=== PATIENT | female | born 1975 | race Caucasian/White ===

== ENCOUNTER 2018-03-08 06:35 | Inpatient (IN) ==
--- NOTE | 2018-03-08 06:50 | Emergency Department Note ---
Disposition Clinical Impression: Suicidal ideation Chest pain Qualifiers: Chest pain type: unspecified Qualified Code(s): R07.9 - Chest pain, unspecified Disposition: Still a Patient Condition: Fair Forms: ED Satisfaction Letter General Adult HPI - General Chief complaint: ED Chest Pain Stated complaint: chest pain Time Seen by Provider: 03/08/18 06:40 Source: patient, EMS Nursing Notes Reviewed: Yes Vital Signs Reviewed: Yes - History of Present Illness HPI Narrative: 42-year-old female has emergency department with chest pain and palpitations. Patient stated that it started an hour ago. Patient also states that she wants to kill herself. She reports wanting to take a knife and slashing her throat. Patient states that she feels that she is just anxious. Patient also states that she thought about taking all of the pills that she owns and kill herself with them. Pain Scale: 7 - Related Data Home Medications Medication Instructions Recorded Confirmed [place] Carbonate 300 mg PO BID 08/29/16 10/24/17 OLANZapine [Zyprexa] 20 mg PO HS 09/11/16 10/24/17 Quetiapine Fumarate [Seroquel] 400 mg PO HS 06/06/17 10/24/17 Buprenorphine HCl [Subutex] 16 mg SL DAILY 10/24/17 10/24/17 Lurasidone HCl [Latuda] 60 mg PO DAILY 10/24/17 10/24/17 Ropinirole HCl [Requip] 0.25 mg PO HS 10/24/17 10/24/17 Previous Rx's Medication Instructions Recorded Albuterol Sulfate [Ventolin Hfa] 2 puff IH Q4-6H PRN #1 hfa.aer.ad 12/05/17 Amoxicillin/Clavulanate [Augmentin] 875 mg PO BIDWM #20 tablet 12/20/17 Benzonatate [Tessalon] 100 mg PO TID #30 capsule 12/20/17 Guaifenesin [Guaifenesin ER] 600 mg PO BID PRN #20 tab 12/20/17 predniSONE [PredniSONE] 20 mg PO DAILY 5 Days #7 tablet 12/20/17 Allergies Allergy/AdvReac Type Severity Reaction Status Date / Time No Known Allergies Allergy Verified 12/20/17 09:34 All systems ED: reviewed and negative except as stated. Review of Systems: As Per HPI Constitutional: Denies: fever Cardiovascular: Reports: chest pain Respiratory: Denies: cough, dyspnea Gastrointestinal: Denies: abdominal pain, nausea, vomiting Genitourinary: Denies: urgency Musculoskeletal: Denies: back pain Neurological: Denies: headache, weakness, numbness, paresthesias Psychiatric: Denies: anxiety Endocrine: Denies: fatigue Past Medical History - Past Medical History Medical history: Reports: hepatitis, hypertension, other Surgical history: Reports: , other (Left eye surgery) Psychiatric history: Reports: anxiety, bipolar, depression, PTSD, prior suicide attempt, previous psychiatric hospitalization STUDIO MANAGER history: Reports: no STUDIO MANAGER history - Social History Smoking Status: Current every day smoker Smokeless Tobacco Status: No Alcohol use: Reports: none Drug use: Reports: cocaine, opiates, IV Drug Use, prescription drug abuse Physical Exam - General General appearance: alert - Head Head exam: atraumatic, normocephalic - Eye Eye exam: Present: EOMI - ENT ENT exam: normal exam, normal oropharynx - Neck Neck exam: Present: full ROM, trachea midline. Absent: tenderness, meningismus - Chest Chest inspection: Present: normal inspection, symmetric chest wall rise - Respiratory Respiratory exam: Present: normal lung sounds bilaterally. Absent: respiratory distress - Cardiovascular Cardiovascular exam: Present: regular rate, normal rhythm, normal heart sounds - Abdominal Exam Abdominal exam: Present: soft, Non-Tender. Absent: distention, guarding, rebound - Back Exam Back exam: Present: normal inspection - Neurological Exam Neurological exam: Present: alert, oriented X3 - Psychiatric Psychiatric exam: Present: anxious Course Vital Signs Temperature 97.6 F 03/08/18 06:38 Pulse Rate 64 03/08/18 06:38 Respiratory Rate 18 03/08/18 06:38 Blood Pressure 122/81 03/08/18 06:38 O2 Sat by Pulse Oximetry 95 03/08/18 06:38 Temperature 97.6 F 03/08/18 06:38 Pulse Rate 64 03/08/18 06:38 Respiratory Rate 18 03/08/18 06:38 Blood Pressure 122/81 03/08/18 06:38 O2 Sat by Pulse Oximetry 95 03/08/18 06:38 Oxygen Delivery Oxygen Delivery Room Air Medical Decision Making - MDM Narrative Medical decision making narrative: 42-year-old female presents to the emergency department with concern for having chest pain and suicidal ideations. At this time, we obtain an electrocardiogram that did not reveal any ischemic changes. However, it did reveal a PVC. This could certainly be the cause of her palpitations that she reports. We will obtain chest x-ray and troponin. We have filled out a pink slip and have gotten this patient a sitter. We are obtaining a urinalysis, urine drug screen, salicylate, Tylenol, CBC, BMP, hepatic panel. Patient hemodynamically stable and not in any acute distress at this time. Transfer of care has been given over to the day team.
[2018-03-08] MEDS ORDERED: *HR* LORazepam 1 MG TABLET PO ONE ×2 (07:03→19:35)
--- NOTE | 2018-03-08 07:13 | Emergency Department Note ---
Disposition Clinical Impression: Suicidal ideation Chest pain Qualifiers: Chest pain type: unspecified Qualified Code(s): R07.9 - Chest pain, unspecified Disposition: Admitted As Inpatient Condition: Fair Referrals: Art Tao MD [Primary Care Provider] - Forms: ED Satisfaction Letter Time of Disposition: 11:22 General Adult HPI - General Chief complaint: ED Psychiatric Symptoms Stated complaint: chest pain;/SI Time Seen by Provider: 03/08/18 06:40 Source: patient, EMS - History of Present Illness Pain Scale: 7 - Related Data Home Medications Medication Instructions Recorded Confirmed [place] Carbonate 300 mg PO BID 08/29/16 10/24/17 OLANZapine [Zyprexa] 20 mg PO HS 09/11/16 10/24/17 Quetiapine Fumarate [Seroquel] 400 mg PO HS 06/06/17 10/24/17 Buprenorphine HCl [Subutex] 16 mg SL DAILY 10/24/17 10/24/17 Lurasidone HCl [Latuda] 60 mg PO DAILY 10/24/17 10/24/17 Ropinirole HCl [Requip] 0.25 mg PO HS 10/24/17 10/24/17 Previous Rx's Medication Instructions Recorded Albuterol Sulfate [Ventolin Hfa] 2 puff IH Q4-6H PRN #1 hfa.aer.ad 12/05/17 Amoxicillin/Clavulanate [Augmentin] 875 mg PO BIDWM #20 tablet 12/20/17 Benzonatate [Tessalon] 100 mg PO TID #30 capsule 12/20/17 Guaifenesin [Guaifenesin ER] 600 mg PO BID PRN #20 tab 12/20/17 predniSONE [PredniSONE] 20 mg PO DAILY 5 Days #7 tablet 12/20/17 Allergies Allergy/AdvReac Type Severity Reaction Status Date / Time No Known Allergies Allergy Verified 12/20/17 09:34 Constitutional: Denies: fever Cardiovascular: Reports: chest pain Respiratory: Denies: cough, dyspnea Gastrointestinal: Denies: abdominal pain, nausea, vomiting Genitourinary: Denies: urgency Musculoskeletal: Denies: back pain Neurological: Denies: headache, weakness, numbness, paresthesias Psychiatric: Denies: anxiety Endocrine: Denies: fatigue Past Medical History - Past Medical History Medical history: Reports: hepatitis, hypertension, other Surgical history: Reports: , other (Left eye surgery) Psychiatric history: Reports: anxiety, bipolar, depression, PTSD, prior suicide attempt, previous psychiatric hospitalization PLAN EXAMINER history: Reports: no PLAN EXAMINER history - Social History Smoking Status: Current every day smoker Smokeless Tobacco Status: No Alcohol use: Reports: none Drug use: Reports: cocaine, opiates, IV Drug Use, prescription drug abuse Physical Exam - General General appearance: alert Course Vital Signs Temperature 97.6 F 03/08/18 06:38 Pulse Rate 64 03/08/18 06:38 Respiratory Rate 18 03/08/18 06:38 Blood Pressure 122/81 03/08/18 06:38 O2 Sat by Pulse Oximetry 95 03/08/18 06:38 Temperature 97.6 F 03/08/18 06:38 Pulse Rate 81 03/08/18 08:30 Respiratory Rate 16 03/08/18 08:30 Blood Pressure 108/80 03/08/18 08:30 O2 Sat by Pulse Oximetry 97 03/08/18 08:30 Oxygen Delivery Oxygen Delivery Room Air Medical Decision Making - Medical Records Medical records reviewed: Yes I reviewed the patient's medical records. - Lab Data Lab results reviewed: Yes I reviewed the patient's lab results. Result diagrams: 03/08/18 07:36 03/08/18 07:36 Lab Results 03/08/18 03/08/18 03/08/18 Range/Units 07:00 07:36 07:36 WBC 2.9 L (4.3-11.1) K/mcL RBC 4.28 (3.82-4.97) M/mcL Hgb 13.8 (11.5-15.4) g/dL Hct 39.7 (35.3-44.9) % MCV 92.8 (83.0-100.0) fL MCH 32.2 (28.0-33.3) pg MCHC 34.8 (31.6-35.5) g/dL RDW 11.8 (11.5-14.5) % Plt Count 146 (140-400) K/mcL MPV 9.3 L (9.4-12.4) fL Immature Gran % 0.0 (0-4) % Seg Neutrophils % 45.2 % Lymphocytes % 36.9 % Monocytes % 12.4 % Eosinophils % 5.2 % Basophils % 0.3 % Neutrophils # 1.3 L (1.6-8.9) K/mcL Lymphocytes # 1.1 (0.6-4.6) K/mcL Monocytes # 0.4 (0.0-1.3) K/mcL Eosinophils # 0.2 (0.0-0.6) K/mcL Basophils # 0.0 (0.0-0.2) K/mcL Sodium 141 (136-145) mEq/L Potassium 4.1 (3.5-5.1) mEq/L Chloride 112 H (98-107) mEq/L Carbon Dioxide 24 (23-29) mEq/L BUN 11 (6-20) mg/dL Creatinine 0.65 (0.60-1.20) mg/dL Est GFR ( Amer) > 60 (> 60) Est GFR (Non-Af Amer) > 60 (> 60) BUN/Creatinine Ratio 17 (6-26) Glucose 102 (70-105) mg/dL Calculated Osmolality 292 (280-300) Calcium 8.9 (8.6-10.3) mg/dL Total Bilirubin 0.3 (0.3-1.0) mg/dL Direct Bilirubin 0.1 (0.0-0.2) mg/dL Indirect Bilirubin 0.2 (0.0-1.2) mg/dL AST 24 (13-39) Units/L ALT 10 (7-52) Units/L Alkaline Phosphatase 78 (34-104) Units/L Troponin I < 0.03 (< 0.04) ng/mL B-Natriuretic Peptide (Less than 100) pg/mL Serum Total Protein 6.1 L (6.4-8.9) g/dL Albumin 3.8 (3.5-5.7) g/dL Globulin 2.3 L (2.4-3.5) g/dL Albumin/Globulin Ratio 1.7 (1.1-2.2) Salicylates 2.5 L (15.0-30.0) mg/dL Urine Opiates Screen Negative (Fpvghc=772) ng/mL Acetaminophen < 10 L (10-20) mcg/mL Ur Barbiturates Screen Negative (Quhafy=314) ng/mL Ur Phencyclidine Scrn Negative (Cutoff=25) ng/mL Ur Amphetamines Screen Negative (Csimlk=6960) ng/mL U Benzodiazepines Scrn Negative (Xdyfoo=413) ng/mL [place] (0.6-1.2) mEq/L Urine Cocaine Screen Positive H (Cutoff= 300) ng/mL U Marijuana (THC) Screen Negative (Cutoff = 50) ng/mL Ethyl Alcohol < 10 (Less than 10) mg/dL 03/08/18 03/08/18 Range/Units 07:36 07:52 WBC (4.3-11.1) K/mcL RBC (3.82-4.97) M/mcL Hgb (11.5-15.4) g/dL Hct (35.3-44.9) % MCV (83.0-100.0) fL MCH (28.0-33.3) pg MCHC (31.6-35.5) g/dL RDW (11.5-14.5) % Plt Count (140-400) K/mcL MPV (9.4-12.4) fL Immature Gran % (0-4) % Seg Neutrophils % % Lymphocytes % % Monocytes % % Eosinophils % % Basophils % % Neutrophils # (1.6-8.9) K/mcL Lymphocytes # (0.6-4.6) K/mcL Monocytes # (0.0-1.3) K/mcL Eosinophils # (0.0-0.6) K/mcL Basophils # (0.0-0.2) K/mcL Sodium (136-145) mEq/L Potassium (3.5-5.1) mEq/L Chloride (98-107) mEq/L Carbon Dioxide (23-29) mEq/L BUN (6-20) mg/dL Creatinine (0.60-1.20) mg/dL Est GFR ( Amer) (> 60) Est GFR (Non-Af Amer) (> 60) BUN/Creatinine Ratio (6-26) Glucose (70-105) mg/dL Calculated Osmolality (280-300) Calcium (8.6-10.3) mg/dL Total Bilirubin (0.3-1.0) mg/dL Direct Bilirubin (0.0-0.2) mg/dL Indirect Bilirubin (0.0-1.2) mg/dL AST (13-39) Units/L ALT (7-52) Units/L Alkaline Phosphatase (34-104) Units/L Troponin I (< 0.04) ng/mL B-Natriuretic Peptide 12 (Less than 100) pg/mL Serum Total Protein (6.4-8.9) g/dL Albumin (3.5-5.7) g/dL Globulin (2.4-3.5) g/dL Albumin/Globulin Ratio (1.1-2.2) Salicylates (15.0-30.0) mg/dL Urine Opiates Screen (Azgmzh=282) ng/mL Acetaminophen (10-20) mcg/mL Ur Barbiturates Screen (Ocuszp=800) ng/mL Ur Phencyclidine Scrn (Cutoff=25) ng/mL Ur Amphetamines Screen (Vopbzy=1254) ng/mL U Benzodiazepines Scrn (Okbaru=893) ng/mL [place] 0.3 L (0.6-1.2) mEq/L Urine Cocaine Screen (Cutoff= 300) ng/mL U Marijuana (THC) Screen (Cutoff = 50) ng/mL Ethyl Alcohol (Less than 10) mg/dL - Radiology Data Radiology results reviewed: Yes I reviewed the patient's radiology results. - EKG Data EKG #1 EKG attestation: Yes I reviewed and interpreted this EKG. EKG results narrative: Normal sinus rhythm with PVCs rate 74 PA are 199 QRS 112 QT/QTC 385/412. No acute ST segment elevation Attestation Statement - Attestation Attestation: I examined this patient and my medical decision-making was reviewed with the Resident Physician. I agree with the documented findings, disposition and treatment plan as described except to the extent set forth below. [id number] time provided Patient arrives by EMS complaining of chest discomfort which she attributes to her anxiety. She denies dyspnea. She is not conversationally dyspneic. ECG reviewed by me. She states she is severely depressed, her medications are not working, and she wants to speak with somebody from the behavioral service for suicidal thoughts. I will attempt to clear her medically for behavioral evaluation if her cardiac evaluation is negative 10:20: cleared medically at 10:20
[2018-03-08 07:24] LABS: Amphetamine Screen,Urine Negative ng/mL (Cutoff=1000); Barbiturate Screen,Urine Negative ng/mL (Cutoff=200); Benzodiazepines Screen,Urine Negative ng/mL (Cutoff=200); Cannabinoid Screen,Urine Negative ng/mL (Cutoff = 50); Cocaine Screen,Urine Positive ng/mL (Cutoff= 300); Opiate Screen,Urine Negative ng/mL (Cutoff=300); Phencyclidine Screen,Urine Negative ng/mL (Cutoff=25)
[2018-03-08 08:11] LABS: Basophils % 0.3 %; Eosinophils # 0.2 K/mcL (0.0-0.6); Eosinophils % 5.2 %; Hematocrit 39.7 % (35.3-44.9); Hemoglobin 13.8 g/dL (11.5-15.4); Lymphocytes # 1.1 K/mcL (0.6-4.6); Lymphocytes % 36.9 %; Mean Corpuscular HGB Conc 34.8 g/dL (31.6-35.5); Mean Corpuscular Hemoglobin 32.2 pg (28.0-33.3); Mean Corpuscular Volume 92.8 fL (83.0-100.0); Mean Platelet Volume 9.3 fL (9.4-12.4); Monocytes # 0.4 K/mcL (0.0-1.3); Monocytes % 12.4 %; Neutrophils # 1.3 K/mcL (1.6-8.9); Platelet Count 146 K/mcL (140-400); Red Blood Count 4.28 M/mcL (3.82-4.97); Red Cell Distribution Width 11.8 % (11.5-14.5); Segmented Neutrophils % 45.2 %
[2018-03-08 08:30] LABS: Troponin I < 0.03 ng/mL (< 0.04)
[2018-03-08] MEDS ORDERED: diazePAM 2 MG TABLET PO ONE (08:41)
[2018-03-08] MEDS ORDERED: Nicotine 21 MG PATCH.TD24 TD ONE (09:40)
[2018-03-08 10:17] LABS: Acetaminophen < 10 mcg/mL (10-20); Alanine Aminotransferase 10 Units/L (7-52); Albumin 3.8 g/dL (3.5-5.7); Albumin/Globulin Ratio 1.7 (1.1-2.2); Alkaline Phosphatase 78 Units/L (34-104); Aspartate Amino Transferase 24 Units/L (13-39); BUN/Creatinine Ratio 17 (6-26); Bilirubin,Direct 0.1 mg/dL (0.0-0.2); Bilirubin,Indirect 0.2 mg/dL (0.0-1.2); Bilirubin,Total 0.3 mg/dL (0.3-1.0); Blood Urea Nitrogen 11 mg/dL (6-20); Calcium 8.9 mg/dL (8.6-10.3); Carbon Dioxide 24 mEq/L (23-29); Chloride 112 mEq/L (98-107); Ethanol < 10 mg/dL (Less than 10); Globulin 2.3 g/dL (2.4-3.5); Glucose 102 mg/dL (70-105); Osmolality,Calculated 292 (280-300); Potassium 4.1 mEq/L (3.5-5.1); Salicylate 2.5 mg/dL (15.0-30.0); Sodium 141 mEq/L (136-145); Total Protein 6.1 g/dL (6.4-8.9); eGFR For African Americans > 60 (> 60); eGFR For Non-African Americans > 60 (> 60)
[2018-03-08] MEDS ORDERED: HydrOXYzine 100 MG/2 ML VIAL IM ONE (11:03)
[2018-03-08] MEDS ORDERED: MOM Conc 10 ML UD.LIQ PO PRN (11:55)
[2018-03-08] MEDS ORDERED: Ibuprofen 400 MG TABLET PO PRN (11:55)
[2018-03-08] MEDS ORDERED: *HR* LORazepam 1 MG TABLET PO PRN (11:55)
[2018-03-08] MEDS ORDERED: hydrOXYzine pamoate 25 MG CAPSULE PO PRN (11:55)
[2018-03-08] MEDS ORDERED: Haloperidol Lactate 5 MG/ML VIAL IM PRN (11:55)
[2018-03-08] MEDS ORDERED: *HR* LORazepam 2 MG/ML VIAL IM PRN (11:55)
[2018-03-08] MEDS ORDERED: Ondansetron ODT 4 MG TAB.RAPDIS SL PRN (11:58)
[2018-03-08] MEDS ORDERED: Baclofen 10 MG TABLET PO SCH (15:00)
[2018-03-08] MEDS ORDERED: Baclofen 10 MG TABLET PO PRN (16:14)
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
[2018-03-08] MEDS: Lithium Carbonate 300 MG CAPSULE PO SCH (21:37)
[2018-03-08] MEDS: rOPINIRole 0.25 MG TABLET PO SCH (21:37)
[2018-03-08] MEDS: Gabapentin 300 MG CAPSULE PO SCH (21:38)
--- NOTE | 2018-03-08 23:30 | Electrocardiograph Report ---
[address] [address] Test Date: 2018-03-08 Pat Name: Sara Knapp Department: 103 Room: 1A41 Gender: F Neurobiologist: CT : 1975 Requested By: Osmin Mendez Order Number: [id number] Reading MD: Rosalina Starks Measurements Intervals [place] Rate: 74 P: 73 NV: 199 QRS: 42 QRSD: 112 T: 42 QT: 385 QTc: 412 Interpretive Statements SINUS RHYTHM WITH OCCASIONAL VENTRICULAR PREMATURE COMPLEXES MODERATE INTRAVENTRICULAR CONDUCTION DELAY [110+ ms QRS DURATION] Electronically Signed On 03-08-2018 23:28:14 EDT by Rosalina Starks
[2018-03-09] MEDS: Lithium Carbonate 300 MG CAPSULE PO SCH ×2 (08:46→20:43)
[2018-03-09] MEDS: Gabapentin 300 MG CAPSULE PO SCH ×3 (08:46→20:43)
[2018-03-09] MEDS ORDERED: Nicotine 21 MG PATCH.TD24 TD SCH (09:00)
[2018-03-09] MEDS ORDERED: *HR* LORazepam 0.5 MG TABLET PO ONE (13:47)
--- NOTE | 2018-03-09 13:50 | Psychiatry Progress Note ---
Date of Encounter: 03/09/18 Time of Encounter: 13:30 Subjective Interval history: Patient is a 42t/o female, single with a h/o Bipolar disorder, anxiety disorder, subspace use disorder, h/o multiple inpatient hospitalization admitted to the floor on account of worsening depression with suicidal thoughts. She was discussed on rounds by multidisciplinary treatment team. There were no reported behavioral issues or incident overnight. Patient was seen this morning in the office. She was calm, cooperative and well related. She reported worsening depressive symptoms with suicidal thoughts in the setting of medication noncompliance and cocain use. Patient denied ongoing stressors. She reported being sober for over 2yrs but relapsed a month ago. She is compliant with her medications and denied any side effects. She denied problelms with her sleep or appatite. She continues to endorse depressive symptoms with intermittent SI. She denied any plan or intent. On review of symptoms, she denied any mood or psychotic symptoms including AH/VH/HI. 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 She is on suboxone maintenance treatment for opiate dependence. She last took her suboxone the day she presented to the hospital. She denies any signs and symptoms of opiate withdrawal. Review of Systems Constitutional: Denies: fever, chills, weakness, weight change Eyes: Denies: eye pain, vision change Ears, Nose, Throat: Denies: ear pain, throat pain, dental pain, hearing loss, congestion Cardiovascular: Denies: chest pain, palpitations, dyspnea on exertion Respiratory: Denies: cough, dyspnea, wheezes Gastrointestinal: Denies: abdominal pain, nausea, vomiting, diarrhea, constipation Musculoskeletal: Denies: joint swelling, joint pain Neurological: Denies: headache, weakness, numbness, memory loss Psychiatric: Reports: depression, anxiety, suicidal ideation Results - Vital Signs Vital Signs: Temp Pulse Resp BP Pulse Ox 98.4 F 73 18 116/78 97 03/09/18 09:00 03/09/18 09:00 03/09/18 09:00 03/09/18 09:00 03/08/18 08:30 Assessment and Plan (1) Anxiety Current visit: No Status: Acute Risks, benefits, side effects, alternatives discussed w/pt: Yes Patient agreeable to treatment: Yes (2) Drug abuse and dependence Current visit: Yes Status: Chronic Plan: Continue hospitalization Risks, benefits, side effects, alternatives discussed w/pt: Yes Patient agreeable to treatment: Yes (3) Suicidal ideation Current visit: Yes Status: Acute Plan: Continue hospitalization, Close observation, Suicide Precautions per unit protocol, Encourage participation in unit milieu, Group Therapy, Monitor sleep, Monitor appetite Risks, benefits, side effects, alternatives discussed w/pt: Yes Patient agreeable to treatment: Yes (4) Depression Current visit: Yes Status: Chronic Risks, benefits, side effects, alternatives discussed w/pt: Yes Patient agreeable to treatment: Yes Qualifiers: Depression Type: major depressive disorder Major depression recurrence: unspecified whether recurrent Active/Remission status: currently active Major depression episode severity: moderate Qualified Code(s): F32.1 - Major depressive disorder, single episode, moderate (5) Cocaine abuse Current visit: Yes Status: Acute Plan: Continue hospitalization, Close observation, Suicide Precautions per unit protocol, Encourage participation in unit milieu, Group Therapy, Monitor sleep, Monitor appetite (6) Heroin abuse Current visit: No Status: Chronic Plan: Continue hospitalization, Close observation, Suicide Precautions per unit protocol, Encourage participation in unit milieu, Group Therapy, Monitor sleep, Monitor appetite (7) Drug-induced mood disorder Current visit: Yes Status: Acute Plan: Continue hospitalization, Close observation, Suicide Precautions per unit protocol, Encourage participation in unit milieu, Group Therapy, Monitor sleep, Monitor appetite Consult Discharge Plan - Plan Referrals: Art Tao MD [Primary Care Provider] - Psychiatry Exam - Constitutional Vitals: Temp Pulse Resp BP Pulse Ox 98.4 F 73 18 116/78 97 03/09/18 09:00 03/09/18 09:00 03/09/18 09:00 03/09/18 09:00 03/08/18 08:30 General appearance: age & developmentally appropriate - Musculoskeletal Gait: normal Station: relaxed Strength & Tone: normal for patient - Psychiatric Patient Orientation: Yes Person, Yes Place, Yes Circumstance Level of alertness: Alert, Follows commands Behavior: calm, cooperative Psychomotor activity: Normal Eye Contact: Maintains Eye Contact Mood Description: Depressed Affect description: full range Speech Volume: Normal, Loud Speech pattern: normal rate, normal rhythm, normal tone, fluent, spontaneous Language & Vocabulary: consistent with education Thought Process: Logical, Goal Oriented Thought Content: Yes Suicidal ideation Perceptual Disturbances: No Auditory hallucinations, No Visual hallucinations Attention Span Ability: Capable of Focused Attention Memory Description: Grossly Intact Patient Reliability: Reliable Historian Fund of knowledge: Yes average Intelligence Estimate: Average Judgment: Poor Insight: Minimal
[2018-03-09] MEDS ORDERED: Nicotine 2 MG GUM BC PRN (14:11)
[2018-03-09] MEDS: rOPINIRole 0.25 MG TABLET PO SCH (20:43)
[2018-03-09] MEDS: hydrOXYzine pamoate 25 MG CAPSULE PO PRN (20:44)
[2018-03-10] MEDS: Gabapentin 300 MG CAPSULE PO SCH ×3 (10:11→20:34)
[2018-03-10] MEDS: Lithium Carbonate 300 MG CAPSULE PO SCH ×3 (10:11→20:34)
--- NOTE | 2018-03-10 14:07 | Psychiatry Progress Note ---
Date of Encounter: 03/10/18 Time of Encounter: 13:50 Subjective Interval history: Identifying Data: Patient is a 42t/o female, single with a h/o Bipolar disorder, anxiety disorder, subspace use disorder, h/o multiple inpatient hospitalization admitted to the floor on account of worsening depression with suicidal thoughts. Interval Hx: She seen and discussed on rounds by multidisciplinary treatment team. There were no reported behavioral issues or incident overnight. She was seen this morning in the day room. She was calm, cooperative and well related. She reported feeling a little today. She is comoliant with her medications and denied any side effects. She denied problelms with her sleep or apatite. She rated her depression and anxiety both 5/10 and denied any suicidal thoughts.[place] Level done this morning reviewed and is 0.5. Review of O[facility] showed patient has been on Subutex 8mg BID since 2015 with her last prescription picked up 03/05 for 7 days. She denied any signs and symptoms of opiates withdrawal. On review of symptoms, she denied any mood or psychotic symptoms including AH/VH/HI. Current [place] level is subtherapeutic and I plan to increase the dose to Review of Systems Constitutional: Denies: fever, chills, weakness, weight change Eyes: Denies: eye pain, vision change Ears, Nose, Throat: Denies: ear pain, throat pain, dental pain, hearing loss, congestion Cardiovascular: Denies: chest pain, palpitations, dyspnea on exertion Respiratory: Denies: cough, dyspnea, wheezes Gastrointestinal: Denies: abdominal pain, nausea, vomiting, diarrhea, constipation Musculoskeletal: Denies: joint swelling, joint pain Neurological: Denies: headache, weakness, numbness, memory loss Psychiatric: Reports: depression, anxiety Results - Vital Signs Vital Signs: Temp Pulse Resp BP Pulse Ox 98.5 F 80 16 119/92 18 03/09/18 20:17 03/10/18 08:25 03/10/18 08:25 03/10/18 08:25 03/09/18 20:17 - Drug Levels and Toxicology Drug Levels and Toxicology: Drug Levels and Toxicity 03/10/18 02:06 [place] 0.5 L - Labs Labs: Laboratory Results - last 24 hr 03/10/18 02:06 [place] 0.5 L Assessment and Plan (1) Anxiety Current visit: No Status: Acute Risks, benefits, side effects, alternatives discussed w/pt: Yes Patient agreeable to treatment: Yes (2) Drug abuse and dependence Current visit: Yes Status: Chronic Risks, benefits, side effects, alternatives discussed w/pt: Yes Patient agreeable to treatment: Yes (3) Suicidal ideation Current visit: Yes Status: Acute Risks, benefits, side effects, alternatives discussed w/pt: Yes Patient agreeable to treatment: Yes (4) Depression Current visit: Yes Status: Chronic Risks, benefits, side effects, alternatives discussed w/pt: Yes Patient agreeable to treatment: Yes Qualifiers: Depression Type: major depressive disorder Major depression recurrence: unspecified whether recurrent Active/Remission status: currently active Major depression episode severity: moderate Qualified Code(s): F32.1 - Major depressive disorder, single episode, moderate (5) Cocaine abuse Current visit: Yes Status: Acute (6) Heroin abuse Current visit: No Status: Chronic (7) Drug-induced mood disorder Current visit: Yes Status: Acute Consult Discharge Plan - Plan Referrals: Art Tao MD [Primary Care Provider] - Psychiatry Exam - Constitutional Vitals: Temp Pulse Resp BP Pulse Ox 98.5 F 80 16 119/92 18 03/09/18 20:17 03/10/18 08:25 03/10/18 08:25 03/10/18 08:25 03/09/18 20:17 General appearance: age & developmentally appropriate - Musculoskeletal Gait: normal Station: relaxed Strength & Tone: normal for patient - Psychiatric Patient Orientation: Yes Person, Yes Time, Yes Place Level of alertness: Alert Behavior: calm, cooperative Psychomotor activity: Normal Eye Contact: Maintains Eye Contact Mood Description: Depressed, Anxious Affect description: congruent with mood, full range Speech Volume: Normal Speech pattern: normal rate, normal rhythm, normal tone, fluent, spontaneous Language & Vocabulary: consistent with education Thought Process: Linear, Goal Oriented Thought Content: No Suicidal ideation, No Homicidal ideation, No Overt delusions Perceptual Disturbances: No Auditory hallucinations, No Visual hallucinations Attention Span Ability: Capable of Focused Attention Memory Description: Grossly Intact Patient Reliability: Reliable Historian Fund of knowledge: Yes abstraction ability, Yes aware of current events Intelligence Estimate: Average Judgment: Limited Insight: Minimal
[2018-03-10] MEDS: hydrOXYzine pamoate 25 MG CAPSULE PO PRN ×2 (14:30→20:34)
[2018-03-10] MEDS: rOPINIRole 0.25 MG TABLET PO SCH (20:34)
[2018-03-11] MEDS: Gabapentin 300 MG CAPSULE PO SCH ×2 (08:50→14:26)
[2018-03-11] MEDS: Lithium Carbonate 300 MG CAPSULE PO SCH ×2 (08:50→14:26)
[2018-03-11 10:54] VITALS: BP 116/77
--- NOTE | 2018-03-11 12:49 | Discharge Summary ---
Date of Encounter: 03/11/18 Time of Encounter: 12:00 Diagnosis - Discharge Diagnosis (1) Suicidal ideation Priority: Secondary Status: Resolved (2) Cocaine abuse Status: Acute (3) Heroin abuse Status: Chronic (4) Bipolar depression Priority: Primary Status: Acute Medications - Discharge Medications Maxeys Carbonate 300 mg PO BID 08/29/16 [History] OLANZapine [Zyprexa] 20 mg PO HS 09/11/16 [History] Quetiapine Fumarate [Seroquel] 400 mg PO HS 06/06/17 [History] Buprenorphine HCl [Subutex] 16 mg SL DAILY 10/24/17 [History] Lurasidone HCl [Latuda] 60 mg PO DAILY 10/24/17 [History] Ropinirole HCl [Requip] 0.25 mg PO HS 10/24/17 [History] Albuterol Sulfate [Ventolin Hfa] 2 puff IH Q4-6H PRN #1 [id number] 12/05/17 [Rx] Gabapentin [Neurontin] 600 mg PO BID 03/08/18 [History] Maxeys Carbonate 150 mg PO HS 03/08/18 [History] Sennosides/Docusate Sodium [Senna-Docusate Sodium Tablet] 1 tab PO BID 03/08/18 [History] Baclofen [Lioresal] 10 mg PO TID PRN tablet 03/11/18 [Rx] 3 Allergy/AdvReac Type Severity Reaction Status Date / Time No Known Allergies Allergy Verified 12/20/17 09:34 Results Procedures and tests throughout hospitalization: Completed Lab Orders Category Date Time Status Maxeys AM 0400 Lab 03/10/18 02:06 Completed Provider Date of admission: 03/08/18 11:53 Primary care physician: Art Tao MD Discharging clinician: Sesar Treviño Psychiatry Exam - Constitutional Vitals: Temp Pulse Resp BP Pulse Ox 97.6 F 79 16 116/77 18 03/11/18 10:53 03/11/18 10:53 03/11/18 10:53 03/11/18 10:53 03/09/18 20:17 General appearance: age & developmentally appropriate, well-nourished - Musculoskeletal Gait: normal Station: relaxed Strength & Tone: normal for patient - Psychiatric Patient Orientation: Yes Person, Yes Time, Yes Place Level of alertness: Alert Behavior: calm, cooperative Psychomotor activity: Normal Eye Contact: Maintains Eye Contact Mood Description: Euthymic/stable Affect description: congruent with mood, full range Speech Volume: Normal Speech pattern: normal rate, normal rhythm, normal tone, fluent, spontaneous Language & Vocabulary: consistent with education Thought Process: Linear, Goal Oriented Thought Content: No Suicidal ideation, No Homicidal ideation, No Overt delusions Perceptual Disturbances: No Auditory hallucinations, No Visual hallucinations Attention Span Ability: Capable of Focused Attention Memory Description: Grossly Intact Patient Reliability: Reliable Historian Fund of knowledge: Yes abstraction ability, Yes aware of current events Intelligence Estimate: Average Judgment: Limited Insight: Partial Hospital Course Hospital course: Ms. Knapp is a 42 year old female The patient was admitted she had worsening of bipolar depression. The bipolar disorder was being treated by a doctor at [facility]. The patient had been in counseling and followed up regularly. The patient notes that she was compliant with her medicines but had relapsed and abused cocaine in this period of time during the period of withdrawal she had significant depression with suicidal ideation. The patient was admitted and eventually stabilized on the unit she participated in group. The patient was not restarted on Subutex in the hospital but wish to resume this therapy at home. The patient agreed that she would attend 90 meetings in 90 days. She has been working with and other recovery based organizations. She had an appointment with her physician at [facility] March 15. Contact was made with her counselor. The patient was able to identify stressors. She was able to report a clean home environment. She was willing and engaged. The patient also has hepatitis C and realizes that this may require further monitoring and treatment. The patient was restarted on her medicines on an outpatient basis but they were not prescribed as she had an adequate supply at home. She had at least 4 Subutex tablets at her home and did not need a prescription before she left. Instructions to help the patient and prevent relapse were also given. The patient had no suicidal ideation psychosis or severe mood disturbance at the time of discharge Time spent discussing smoking cessation with patient: 3 to 10 minutes Does patient wish to continue nicotine replacement upon disc: No - Time Spent with Patient Total time spent providing and/or coordinating discharge services: Less than 30 minutes Assessment and Plan - Patient/Caregiver Discharge Instructions Activity: resume usual activities as tolerated Diet: regular diet - Follow up Plan Follow up with: [facility] [Outside] - 03/15/18 1:30 pm (The above appointment is with Dr. Kline for outpatient psychiatric assessment and medication management services, and resumption of medication assisted treatment. You will also see your counselor, Sonu Lima, on 03/21/2018 at 1:00pm, for outpatient mental health and substance abuse counseling services.) Functional capacity at discharge: independent ambulation Overall status at discharge: Stable Disposition: Home, Self-Care Quality - Multiple Antipsychotics Patient discharged on 2 or more antipsychotic medications: No (she will follow up with [facility]) - Justification Documentation of: Recommended plan to taper to monotherapy Procedures - Procedures Procedures: Medication Management, Crisis Stabilization, Supportive Therapy, Group Therapy, Psychoeducational Therapy
== END 2018-03-11 15:10 | disposition home or self-care (01) | DRG 753 ==
LOC: EMEROO 06:35 → 1ANU 11:23 → SUATTDRO 11:53
PROVIDERS: ADMIT General Practice; ATTEND Psychiatry & Neurology Forensic Psychiatry

== ENCOUNTER 2021-07-11 13:14 | Inpatient (IN) ==
[2021-07-11 15:13] LABS: Bilirubin,Urine Negative (Negative); Blood,Urine Negative (Negative); Clarity,Urine Clear (Clear); Color,Urine Light-Yellow (Yellow); Glucose,Urine (UA) Normal (Normal); Ketones,Urine Negative (Negative); Leukocyte Esterase,Urine Negative (Negative); Nitrite,Urine Negative (Negative); PH,Urine 6.5 pH Units (5.0-8.0); Protein,Urine Negative (Neg-Trace); Urobilinogen,Urine Normal (Normal)
[2021-07-11 15:19] LABS: Eosinophils % 0.1 %; Hematocrit 40.1 % (35.3-44.9); Hemoglobin 13.2 g/dL (11.5-15.4); Immature Granulocytes % 0.4 % (0-4); Lymphocytes % 13.8 %; Mean Corpuscular HGB Conc 32.9 g/dL (31.6-35.5); Mean Corpuscular Hemoglobin 29.8 pg (28.0-33.3); Mean Corpuscular Volume 90.5 fL (83.0-100.0); Monocytes # 0.7 K/mcL (0.0-1.3); Monocytes % 10.1 %; Neutrophils # 5.5 K/mcL (1.6-8.9); Platelet Count 211 K/mcL (140-400); Red Blood Count 4.43 M/mcL (3.82-4.97); Red Cell Distribution Width 12.4 % (11.5-14.5); Segmented Neutrophils % 75.6 %; White Blood Count 7.3 K/mcL (4.3-11.1)
[2021-07-11 15:21] LABS: Amphetamine Screen,Urine Negative ng/mL (Cutoff=1000); Barbiturate Screen,Urine Negative ng/mL (Cutoff=200); Benzodiazepines Screen,Urine Negative ng/mL (Cutoff=200); Cannabinoid Screen,Urine Negative ng/mL (Cutoff = 50); Cocaine Screen,Urine Negative ng/mL (Cutoff= 300); Opiate Screen,Urine Negative ng/mL (Cutoff=300); Phencyclidine Screen,Urine Negative ng/mL (Cutoff=25)
[2021-07-11 15:34] LABS: Acetaminophen < 10 mcg/mL (10-20); BUN/Creatinine Ratio 20 (6-26); Blood Urea Nitrogen 14 mg/dL (6-20); Calcium 8.3 mg/dL (8.6-10.3); Carbon Dioxide 30 mEq/L (23-29); Chloride 100 mEq/L (98-107); Chol/HDL Ratio 2.4 (0-4.9); Cholesterol 114 mg/dL (< 200); Ethanol < 10 mg/dL (Less than 10); Glucose 88 mg/dL (70-105); HDL Cholesterol 47 mg/dL (40-59); LDL Cholesterol,Calculated 56 mg/dL (< 100); Osmolality,Calculated 280 (280-300); Potassium 3.8 mEq/L (3.5-5.1); Salicylate < 2.5 mg/dL (15.0-30.0); Sodium 135 mEq/L (136-145); Triglycerides 57 mg/dL (< 150); eGFR For African Americans > 60 (> 60); eGFR For Non-African Americans > 60 (> 60)
[2021-07-11] MEDS ORDERED: *HR* LORazepam 1 MG TABLET PO ONE (16:13)
[2021-07-11 16:46] LABS: Estimated Average Glucose 111 mg/dl; Hemoglobin A1C 5.5 %
[2021-07-11] MEDS ORDERED: Naloxone 0.4 MG/ML INJ IVP PRN (17:37)
[2021-07-11] MEDS ORDERED: Ondansetron 4 MG/2 ML VIAL IVP PRN (17:37)
[2021-07-11] MEDS: Ketorolac 15 MG/ML VIAL IVP SCH (18:44)
[2021-07-11] MEDS: cloNIDine HCL 0.1 MG TABLET PO SCH ×2 (18:45→21:19)
[2021-07-11] MEDS ORDERED: *HR* LORazepam 2 MG/ML VIAL IVP PRN ×2 (19:35→19:40)
[2021-07-11] MEDS ORDERED: *HR* LORazepam 2 MG/ML VIAL IVP ONE ×2 (19:42)
[2021-07-11] MEDS ORDERED: QUEtiapine Fumarate 25 MG TABLET PO SCH (21:00)
[2021-07-11] MEDS: QUEtiapine Fumarate 100 MG TABLET PO SCH (21:19)
[2021-07-11] MEDS: Nicotine 21 MG PATCH.TD24 TD SCH (21:19)
[2021-07-11] MEDS ORDERED: *HR* LORazepam 2 MG/ML VIAL IVP STA (21:58)
[2021-07-11] MEDS: Dexmedetomidine HCl 400 MCG/100 ML MLS IVC SCH (23:15)
[2021-07-12] MEDS: Ketorolac 15 MG/ML VIAL IVP SCH ×4 (00:12→17:06)
[2021-07-12 03:08] LABS: Hematocrit 41.2 % (35.3-44.9); Hemoglobin 13.8 g/dL (11.5-15.4); Mean Corpuscular HGB Conc 33.5 g/dL (31.6-35.5); Mean Corpuscular Hemoglobin 29.6 pg (28.0-33.3); Mean Corpuscular Volume 88.2 fL (83.0-100.0); Mean Platelet Volume 9.2 fL (9.4-12.4); Platelet Count 191 K/mcL (140-400); Red Blood Count 4.67 M/mcL (3.82-4.97); Red Cell Distribution Width 12.3 % (11.5-14.5); White Blood Count 5.1 K/mcL (4.3-11.1)
[2021-07-12 03:29] LABS: ABG Base Excess 5 mEq/L (-2 to 3); ABG HCO3 30 mEq/L (21-27); ABG Oxygen Saturation 95 % (95-98); ABG PCO2 47 mmHg (35-45); ABG PH 7.41 pH Units (7.32-7.45); ABG PO2 76 mmHg (85-104); ABG TCO2 32 mEq/L (20-26)
[2021-07-12 03:38] LABS: BUN/Creatinine Ratio 19 (6-26); Blood Urea Nitrogen 13 mg/dL (6-20); Calcium 8.5 mg/dL (8.6-10.3); Carbon Dioxide 28 mEq/L (23-29); Chloride 103 mEq/L (98-107); Glucose 97 mg/dL (70-105); Magnesium 2.2 mg/dL (1.6-2.6); Osmolality,Calculated 286 (280-300); Phosphorous 2.4 mg/dL (2.7-4.5); Potassium 3.5 mEq/L (3.5-5.1); Sodium 138 mEq/L (136-145); eGFR For African Americans > 60 (> 60); eGFR For Non-African Americans > 60 (> 60)
[2021-07-12] MEDS: Nicotine 21 MG PATCH.TD24 TD SCH (09:10)
[2021-07-12] MEDS: Multivit/Ca/Min/Fe/FA 1 TAB TABLET PO SCH (09:10)
[2021-07-12] MEDS: cloNIDine HCL 0.1 MG TABLET PO SCH ×3 (09:10→20:33)
[2021-07-12] MEDS: Dexmedetomidine HCl 400 MCG/100 ML MLS IVC SCH ×2 (09:42→17:12)
[2021-07-12] MEDS: Acetaminophen 325 MG TABLET PO PRN ×2 (14:23→21:49)
[2021-07-12] MEDS: Melatonin 3 MG TABLET PO PRN (20:33)
[2021-07-12] MEDS: QUEtiapine Fumarate 100 MG TABLET PO SCH (20:33)
[2021-07-12] MEDS: *HR* LORazepam 2 MG/ML VIAL IVP PRN (22:33)
[2021-07-13] MEDS: Ketorolac 15 MG/ML VIAL IVP SCH ×5 (00:12→23:10)
[2021-07-13] MEDS: Dexmedetomidine HCl 400 MCG/100 ML MLS IVC SCH ×3 (02:40→23:11)
[2021-07-13] MEDS: *HR* LORazepam 2 MG/ML VIAL IVP PRN ×6 (02:40→23:10)
[2021-07-13] MEDS: cloNIDine HCL 0.1 MG TABLET PO SCH ×3 (07:35→21:09)
[2021-07-13] MEDS: Multivit/Ca/Min/Fe/FA 1 TAB TABLET PO SCH (07:35)
[2021-07-13] MEDS: Nicotine 21 MG PATCH.TD24 TD SCH (07:35)
[2021-07-13] MEDS ORDERED: Acetaminophen 325 MG TABLET PO PRN (09:09)
[2021-07-13] MEDS ORDERED: Ipratropium 1 PUFF INHALER IH SCH (12:00)
[2021-07-13] MEDS: Ipratropium 1 PUFF INHALER IH SCH ×2 (15:15→22:46)
[2021-07-13] MEDS: Melatonin 3 MG TABLET PO PRN (21:09)
[2021-07-13] MEDS: *HR* Buprenorphine HCl 2 MG SUBLINGUAL TABLET SL SCH (21:09)
[2021-07-13] MEDS: QUEtiapine Fumarate 100 MG TABLET PO SCH (21:09)
[2021-07-14 02:41] LABS: Basophils % 0.2 %; Hematocrit 38.1 % (35.3-44.9); Hemoglobin 12.7 g/dL (11.5-15.4); Immature Granulocytes % 1.1 % (0-4); Lymphocytes # 0.8 K/mcL (0.6-4.6); Lymphocytes % 7.1 %; Mean Corpuscular HGB Conc 33.3 g/dL (31.6-35.5); Mean Corpuscular Volume 89.9 fL (83.0-100.0); Mean Platelet Volume 9.7 fL (9.4-12.4); Monocytes # 0.6 K/mcL (0.0-1.3); Monocytes % 4.9 %; Neutrophils # 10.3 K/mcL (1.6-8.9); Platelet Count 203 K/mcL (140-400); Red Blood Count 4.24 M/mcL (3.82-4.97); Red Cell Distribution Width 12.6 % (11.5-14.5); Segmented Neutrophils % 86.7 %
[2021-07-14 02:43] LABS: White Blood Count 11.9 K/mcL (4.3-11.1)
[2021-07-14 03:01] LABS: Alanine Aminotransferase 6 Units/L (7-52); Albumin 3.2 g/dL (3.5-5.7); Albumin/Globulin Ratio 1.1 (1.1-2.2); Alkaline Phosphatase 66 Units/L (34-104); Aspartate Amino Transferase 20 Units/L (13-39); BUN/Creatinine Ratio 30 (6-26); Bilirubin,Total 0.2 mg/dL (0.3-1.0); Blood Urea Nitrogen 19 mg/dL (6-20); Calcium 8.2 mg/dL (8.6-10.3); Carbon Dioxide 27 mEq/L (23-29); Chloride 100 mEq/L (98-107); Globulin 2.9 g/dL (2.4-3.5); Glucose 146 mg/dL (70-105); Lactate Dehydrogenase 200 Units/L (140-271); Osmolality,Calculated 283 (280-300); Potassium 4.5 mEq/L (3.5-5.1); Sodium 134 mEq/L (136-145); Total Protein 6.1 g/dL (6.4-8.9); eGFR For African Americans > 60 (> 60); eGFR For Non-African Americans > 60 (> 60)
[2021-07-14 03:18] LABS: Ferritin 154 ng/mL (10-120)
[2021-07-14] MEDS: Ipratropium 1 PUFF INHALER IH SCH ×4 (04:19→21:37)
[2021-07-14] MEDS: Ketorolac 15 MG/ML VIAL IVP SCH ×3 (05:27→17:22)
[2021-07-14] MEDS: *HR* Buprenorphine HCl 2 MG SUBLINGUAL TABLET SL SCH (07:47)
[2021-07-14] MEDS: cloNIDine HCL 0.1 MG TABLET PO SCH ×3 (07:47→19:26)
[2021-07-14] MEDS: Multivit/Ca/Min/Fe/FA 1 TAB TABLET PO SCH (07:52)
[2021-07-14] MEDS: Nicotine 21 MG PATCH.TD24 TD SCH (07:52)
[2021-07-14] MEDS: Dexmedetomidine HCl 400 MCG/100 ML MLS IVC SCH (08:00)
[2021-07-14] MEDS: *HR* LORazepam 2 MG/ML VIAL IVP PRN ×2 (17:26→21:41)
[2021-07-14] MEDS: *HR* Buprenorphine HCl 8 MG TAB.SUBL SL SCH (19:26)
[2021-07-14] MEDS: QUEtiapine Fumarate 100 MG TABLET PO SCH (19:26)
[2021-07-15] MEDS: Ketorolac 15 MG/ML VIAL IVP SCH ×5 (01:10→18:14)
[2021-07-15] MEDS: Ipratropium 1 PUFF INHALER IH SCH ×4 (03:21→21:08)
[2021-07-15] MEDS: *HR* LORazepam 2 MG/ML VIAL IVP PRN ×3 (05:38→18:15)
[2021-07-15] MEDS: cloNIDine HCL 0.1 MG TABLET PO SCH ×3 (09:20→21:52)
[2021-07-15] MEDS: *HR* Buprenorphine HCl 8 MG TAB.SUBL SL SCH ×2 (09:20→21:52)
[2021-07-15] MEDS: Multivit/Ca/Min/Fe/FA 1 TAB TABLET PO SCH (09:20)
[2021-07-15] MEDS: Nicotine 21 MG PATCH.TD24 TD SCH (09:20)
[2021-07-15] MEDS: QUEtiapine Fumarate 100 MG TABLET PO SCH (21:52)
[2021-07-16] MEDS: Ketorolac 15 MG/ML VIAL IVP SCH ×2 (00:14→05:28)
[2021-07-16] MEDS: *HR* LORazepam 2 MG/ML VIAL IVP PRN ×2 (00:24→08:08)
[2021-07-16] MEDS: Melatonin 3 MG TABLET PO PRN (00:24)
[2021-07-16 01:06] LABS: Basophils % 0.2 %; Hematocrit 37.4 % (35.3-44.9); Hemoglobin 11.9 g/dL (11.5-15.4); Immature Granulocytes % 1.1 % (0-4); Lymphocytes # 1.1 K/mcL (0.6-4.6); Lymphocytes % 10.2 %; Mean Corpuscular HGB Conc 31.8 g/dL (31.6-35.5); Mean Corpuscular Hemoglobin 29.7 pg (28.0-33.3); Mean Corpuscular Volume 93.3 fL (83.0-100.0); Mean Platelet Volume 8.8 fL (9.4-12.4); Monocytes # 0.9 K/mcL (0.0-1.3); Monocytes % 8.5 %; Neutrophils # 8.6 K/mcL (1.6-8.9); Platelet Count 303 K/mcL (140-400); Red Blood Count 4.01 M/mcL (3.82-4.97); Red Cell Distribution Width 12.7 % (11.5-14.5); White Blood Count 10.7 K/mcL (4.3-11.1)
[2021-07-16 01:16] LABS: BUN/Creatinine Ratio 32 (6-26); Blood Urea Nitrogen 25 mg/dL (6-20); Calcium 8.6 mg/dL (8.6-10.3); Carbon Dioxide 25 mEq/L (23-29); Chloride 102 mEq/L (98-107); Glucose 141 mg/dL (70-105); Osmolality,Calculated 289 (280-300); Potassium 4.8 mEq/L (3.5-5.1); Sodium 136 mEq/L (136-145); eGFR For African Americans > 60 (> 60); eGFR For Non-African Americans > 60 (> 60)
[2021-07-16] MEDS: Ipratropium 1 PUFF INHALER IH SCH ×3 (04:21→10:47)
[2021-07-16 06:25] VITALS: BP 120/73; PULSE 91; TEMP 98.4; O2SAT 91
[2021-07-16] MEDS: Nicotine 21 MG PATCH.TD24 TD SCH (07:50)
[2021-07-16] MEDS: Multivit/Ca/Min/Fe/FA 1 TAB TABLET PO SCH (07:50)
[2021-07-16] MEDS: *HR* Buprenorphine HCl 8 MG TAB.SUBL SL SCH (07:50)
[2021-07-16] MEDS: cloNIDine HCL 0.1 MG TABLET PO SCH (07:50)
== END 2021-07-16 11:06 | disposition home or self-care (01) | DRG 137 ==
LOC: EMEROOARM 13:14 → 3BNU 13:14 → SUATTDRO 16:50 → 3BNU 16:54 → 2NNU 07-12 00:06 → 3BNU 07-15 08:16
PROVIDERS: ADMIT Internal Medicine; ATTEND Family Medicine